=== PATIENT | male | born 1960 | race Caucasian/White ===

== ENCOUNTER 2018-02-13 09:54 | Emergency (ER) | payer SELFPAY ==
[~2018-02-13] VITALS: Ht 175.3 cm; Wt 98.0 kg
[2018-02-13 10:07] VITALS: BP 144/88; Ht 175.3 cm; Wt 98.0 kg
== END 2018-02-13 11:14 | disposition home or self-care (01) ==
LOC: ED 09:54
DX: L02.11 Cutaneous abscess of neck (principal)
CPT/HCPCS: J2001

== ENCOUNTER 2018-02-15 09:51 | Emergency (ER) | payer SELFPAY ==
[~2018-02-15] VITALS: Ht 175.3 cm; Wt 98.0 kg
[2018-02-15 09:56] VITALS: BP 144/91; Ht 175.3 cm; Wt 98.0 kg
== END 2018-02-15 11:00 | disposition home or self-care (01) ==
LOC: ED 09:51
DX: Z48.01 Encounter for change or removal of surgical wound dressing (principal)